=== PATIENT | female | born 1945 | race African-American/Black ===

== ENCOUNTER 2019-10-27 16:48 | Inpatient (IN) | payer OTHER ==
[~2019-10-27] VITALS: Ht 167.6 cm; Wt 83.3 kg
[~2019-10-27 16:48] MED LIST: ACTOS15 MG PO; ALEVE220 MG PO; AMITRIPTYLINE H10 M1 PO; AMLODIPINE BESYL5 MG PO; ANTACID300 M1 PO; ASPIRIN EC81 M1 PO; BENADRYL25 MG PO; BIOTIN5000 MCG PO; CENTRUM SILVER1 EAC4 PO; D3 DOTS2000 UNIT PO; DIABETA 5MG TABL5 MG PO; EDARBI40 MG PO; FLEXERIL PO; FOLBIC RF TABL1 EACH PO; IRON325 PO; JANUMET 50-1,01 EACH PO; JANUVIA100 MG PO; LASIX 40 MG TAB40 M2 PO; LISINOPRIL40 MG PO; MEDROLDOSEPACK PO; METFORMIN 500500 MG PO; MUCINEX TA600 MG/TAB PO; NEURONTIN300 MG PO; NEXIUM40 MG PO; OMEPRAZOLE20 MG PO; PROTONIX40 M1 PO; SIMVASTATIN20 MG PO; TUSSIONEX PENN473 ML PO; VICODIN 5-5001 EACH PO; ZPAK PO
[2019-10-27 16:49] VITALS: BP 126/72
[2019-10-27 17:20] LABS: ABSOLUTE NEUTROPHILS 2.2 thou/uL (1.4-8.2); BASOPHILS 0.3 % (0.0-2.0); EOSINOPHILS 1.9 % (0.0-3.0); HEMATOCRIT 34.9 % (37.0-47.0); HEMOGLOBIN 11.1 gm/dL (12.0-15.0); LYMPHOCYTES 44.5 % (24.0-44.0); MCH 26.4 pg (26.0-34.0); MCHC 31.7 g/dL (28.0-37.0); MCV 83.3 fL (80.0-100.0); MONOCYTES 10.4 % (1.0-8.0); PLATELET COUNT 183 thou/uL (150-400); POLYS 42.9 % (36.0-66.0); RBC 4.19 mil/uL (4.20-5.00); RDW 15.9 % (10.5-14.5)
[2019-10-27 17:26] LABS: ANION GAP 15 mmol/L (7-16); BUN 49 mg/dL (7-18); CALCIUM 8.8 mg/dL (8.5-10.1); CHLORIDE 105 mmol/L (98-107); CO2 21 mmol/L (21-32); CREATININE 3.3 mg/dL (0.6-1.0); GLUCOSE 136 mg/dL (74-106); POTASSIUM 3.4 mmol/L (3.5-5.1); SODIUM 141 mmol/L (136-145)
[2019-10-27 17:36] LABS: ALBUMIN 3.8 g/dL (3.4-5.0); DIRECT BILIRUBIN < 0.1 mg/dL (<0.1-0.2); MAGNESIUM 1.6 mg/dL (1.8-2.4); SGOT 18 U/L (15-37); SGPT 29 U/L (30-65); TOTAL BILIRUBIN 0.5 mg/dL (<0.1-1.0); TOTAL PROTEIN 7.6 g/dL (6.4-8.2); TROPONIN-I <0.06 ng/mL (<0.06)
[2019-10-27 19:21] VITALS: BP 122/78
[2019-10-27 19:39] VITALS: BP 141/79
[2019-10-27 20:00] VITALS: BP 141/79
--- NOTE | 2019-10-27 23:05 | NUR ---
ADMISSION NOTE: ALERT AND ORIENT X4. SHE IS FEELING BETTER AFTER EATING A LITTLE FOOD. SHE HAS BEEN UP TO THE RESTROOM, NO DIZZINESS, STEADY GAIT. ALTHOUGH SHE COMPLAINS THAT HER LEFT FOOT IS BOTHERING HER. SHE STATED THAT SHE HAD NOT EATEN ANY FOOD WENT TO [place], CAME HOME AND WAS TRYING TO GET SOME FOOD PREPARED. WENT TO RESTROOM AND THEN FELL IN RESTROOM. SHE IS NOT SURE IF SHE LOST CONSCIOUSNESS. IV FLUIDS STARTED, SHE ATE A LUNCH BOX AND IS RESTING WELL
[2019-10-27 23:44] VITALS: BP 124/66
[2019-10-28 04:29] VITALS: BP 131/78
[2019-10-28 07:00] LABS: CALCIUM 8.2 mg/dL (8.5-10.1); POTASSIUM 4.1 mmol/L (3.5-5.1)
[2019-10-28 07:02] LABS: CREATININE 2.1 mg/dL (0.6-1.0)
[2019-10-28 07:35] VITALS: BP 119/69
--- NOTE | 2019-10-28 15:42 | NUR ---
INITIAL ASSESSMENT: Consult received. SW reviewed chart and spoke with nursing and attending physician. Pt was admitted from home after syncopal episode. Neuro consulted to evaluate pt for weakness. SW met with pt and family at bedside. Introduced role of SW. Pt is alert/orientated x 4. Pt report she lives at home with her dtr. Prior to admission, pt was independent with ADLs. No use of DME. No hx of services or post-acute placement. Pt's PCP is Dr. Ara Murillo. Plan is for pt to return home when medically stable. Pt's family will be able to provide transportation. SW is following to assist as needed [facility] discharge planning.
[2019-10-28 16:14] VITALS: BP 140/68
[2019-10-28 19:35] VITALS: BP 124/64
--- NOTE | 2019-10-28 20:06 | NUR ---
PATIENT IS PLEASANT WITH CARES. SHE IS ALERT ORIENTED X4. AMBULATES WITH STEADY GAIT AND FRO BATHROOM. RESPIRAIONS ARE NON LABORED. NO EPISODE OF SYNCOPE NOTED TODAY. SHE STATES SHE DOES HAVE IBS AND HAS PERSISTENT DIARRHEA. DENIES ANY PAIN. WILL CONT WITH PLAN OF CARES.
[2019-10-29 04:30] VITALS: BP 137/73
[2019-10-29 04:33] VITALS: BP 138/82
[2019-10-29 04:36] VITALS: BP 136/80
[2019-10-29 05:47] LABS: HEMATOCRIT 30.8 % (37.0-47.0); HEMOGLOBIN 9.7 gm/dL (12.0-15.0); MCH 26.4 pg (26.0-34.0); MCHC 31.5 g/dL (28.0-37.0); MCV 83.9 fL (80.0-100.0); RBC 3.67 mil/uL (4.20-5.00); WBC 4.1 thou/uL (4.0-11.0)
[2019-10-29 06:52] LABS: CALCIUM 8.3 mg/dL (8.5-10.1); CREATININE 1.4 mg/dL (0.6-1.0); POTASSIUM 4.4 mmol/L (3.5-5.1)
[2019-10-29 07:34] VITALS: BP 138/80
--- NOTE | 2019-10-29 09:36 | 2DMMODE ---
[facility] [place] [address] 2 D/M-MODE ECHOCARDIOGRAM Name: DEMARIO LATHAM Room #: 359-P ADM IN M.R.#: [id number] Admission: 10/27/19 Attend Phys: Sandor Palacios MD Discharge: Date of : 49 Report #: [id number] THIS REPORT FOR: cc: Ara Murillo MD, Cynthia MD Lundgren,Luis Roy MD [facility]GED WITH [facility] ~ THIS REPORT FOR: //name// APPROVED REPORT Study performed: 10/29/2019 08:21:03 EXAM: Comprehensive 2D, Doppler, and color-flow Echocardiogram Patient Location: Bedside Room #: 359 Status: routine BSA: 1.93 HR: 67 bpm BP: 138/80 mmHg Rhythm: NSR Other Information Study Quality: Adequate/patient flat Indications Syncope. 2D Dimensions RVDd: 31.29 mm IVSd: 14.83 (7-11mm) LVOT Diam: 21.07 (18-24mm) LVDd: 38.52 mm PWd: 11.47 (7-11mm) Ascending Ao: 30.17 (22-36mm) LVDs: 27.32 (25-40mm) Aortic Root: 27.95 mm Volumes Left Atrial Volume (Systole) Single Plane 4CH: 49.57 mL Single Plane 2CH: 52.02 mL LA ESV Index: 28.00 mL/m2 Aortic Valve AoV Peak Eliazar.: 1.53 m/s AO Peak Gr.: 9.34 mmHg LVOT Max P.29 mmHg LVOT Max V: 1.04 m/s [facility] [address] [place] [address] 2 D/M-MODE ECHOCARDIOGRAM Name: DEMARIO LATHAM Room #: 359-P [facility] IN [facility]#: [id number] Admission: 10/27/19 Attend Phys: Sandor Palacios MD Discharge: Date of : 49 Report #: [id number] KARISSA Vmax: 2.36 cm2 Mitral Valve E/A Ratio: 1.5 MV Decel. Time: 167.81 ms MV E Max Eliazar.: 1.20 m/s MV A Eliazar.: 0.79 m/s MV PHT: 48.66 ms IVRT: 83.04 ms Pulmonary Valve PV Peak Eliazar.: 0.82 m/s PV Peak Gr.: 2.70 mmHg Pulmonary Vein P Vein S: 0.64 m/s P Vein A: 0.28 m/s P Vein D: 0.58 m/s P Vein A Dur.: 114.2 msec P Vein S/D Ratio: 1.10 Tricuspid Valve TR Peak Eliazar.: 2.10 m/s RAP Estimate: 5.00 mmHg TR Peak Gr.: 18.00 mmHg PA Pressure: 23.00 mmHg Left Ventricle The left ventricle is normal size. There is normal LV segmental wall motion. Moderate basal septal hypertrophy is present. Left ventricular systolic function is normal. LVEF is 60-65%. Moderate diastolic dysfunction is present (pseudonormal filling). Right Ventricle The right ventricle is normal size. The right ventricular systolic function is normal. Atria The left atrium size is normal. The right atrium size is normal. Aortic Valve Aortic valve is mildly calcified. No aortic regurgitation is present. There is no aortic valvular stenosis. Mitral Valve The mitral valve is normal in structure. Trace mitral regurgitation. Tricuspid Valve [facility] [address] [place] [address] 2 D/M-MODE ECHOCARDIOGRAM Name: DEMARIO LATHAM Room #: 359-P [facility] IN .R.#: [id number] Admission: 10/27/19 Attend Phys: Sandor Palacios MD Discharge: Date of : 49 Report #: [id number] The tricuspid valve is normal in structure. Trace tricuspid regurgitation. Estimated PAP is 20-25mmHg. Pulmonic Valve Pulmonic valve is not well visualized. Trace pulmonic regurgitation. Great Vessels The aortic root is normal in size. The ascending aorta is normal in size. IVC is normal in size and collapses >50% with inspiration. Pericardium There is no pericardial effusion. <Conclusion> Left ventricular systolic function is normal. There is normal LV segmental wall motion. LVEF is 60-65%. Moderate diastolic dysfunction Aortic valve is mildly calcified. No aortic regurgitation or stenosis The mitral valve is normal in structure. Trace mitral regurgitation. Trace tricuspid regurgitation. Estimated pulmonary artery pressure of 20-25mmHg. There is no pericardial effusion. <ELECTRONICALLY SIGNED> By: Luis Tavares MD, FACC 10/29/19934 4 4 Luis Tavares MD, FACC /INF
[2019-10-29 10:51] LABS: TSH 0.434 uIU/mL (0.358-3.740)
[2019-10-29] MEDS ORDERED: ACETAMINOPHEN325 M1 PO (12:16)
[2019-10-29 14:03] VITALS: BP 138/80
--- NOTE | 2019-10-29 15:09 | NUR ---
ASSUMED CARE OF PT AT 0700. PT AOX4 IN NO ACUTE DISTRESS. VITALS STABLE. VOICING NO CONCERNS. LABS NORMAL. NO SEIZURE ACTIVITY. DISCHARGE ORDERS IN. INSTRUCTED TO FOLLOW UP W/ PCP AND ENDOCRONOLOGY ABOUT INCIDENTAL FINDING ON CAROTID US.
--- NOTE | 2019-10-29 16:16 | NUR ---
DISCHARGE NOTE: SW reviewed chart and spoke with nursing and attending physician. Pt is medically stable for discharge home today. No discharge needs identified at this time. Pt's family to provide transportation home. SW is available to assist should needs arise.
--- NOTE | 2019-11-06 12:31 | EKG ---
[facility] [place] [address] ELECTROCARDIOGRAM REPORT Name: DEMARIO LATHAM Room #: 359-[facility] IN M.R.#: [id number] Admission: 10/27/19 Attend Phys: Sandor Palacios MD Discharge: 10/29/19 Date of : 49 Report #: [id number] THIS REPORT FOR: cc: Ara Murillo MD, Cynthia MD Lundgren,Luis Roy MD [facility] ~ THIS REPORT FOR: //name// [facility] ED Test Date: 2019-10-27 Test Time: 16:56:19 Pat Name: DEMARIO LATHAM Department: Room: [facility] Gender: F Special Education Instructor: BERENICE : 1945 Requested By: Viktoriya Chatman Order Number: [id number] MD: Luis Tavares Measurements Intervals [place] Rate: 80 P: 53 WI: 187 QRS: 0 QRSD: 93 T: 20 QT: 398 QTc: 460 Interpretive Statements Sinus rhythm Left ventricular hypertrophy Poor R wave progression Compared to ECG 11/18/2016 19:00:37 No significant change was found Electronically Signed On 10-28-2019 17:21:46 HEATER ROOM HELPER by Luis Tavares [email or web address] <ELECTRONICALLY SIGNED> By: Luis Tavares MD, [facility] 10/28/19 1721 1656 1656 Luis Tavares MD, [facility] /EPI
== END 2019-10-29 15:13 | disposition home or self-care (01) | DRG 73 ==
LOC: ER 16:48 → 3W 17:58 → ENTRNSPT 10-29 14:58 → EDTRNSPTSTS 10-29 15:02 → 3W 10-29 15:13
PROVIDERS: Emergency Medicine; Internal Medicine; Nurse Practitioner Family; ADMIT Hospitalist
DX: G90.8 Other disorders of autonomic nervous system (principal); N17.0 Acute kidney failure with tubular necrosis; R39.198 Other difficulties with micturition; K58.9 Irritable bowel syndrome, unspecified; E78.5 Hyperlipidemia, unspecified; K21.9 Gastro-esophageal reflux disease without esophagitis; H54.7 Unspecified visual loss; E83.42 Hypomagnesemia; G47.00 Insomnia, unspecified; E66.01 Morbid (severe) obesity due to excess calories; R19.7 Diarrhea, unspecified; E11.22 Type 2 diabetes mellitus with diabetic chronic kidney disease; I12.9 Hypertensive chronic kidney disease with stage 1 through stage 4 chronic kidney disease, or unspecified chronic kidney disease; N18.9 Chronic kidney disease, unspecified; Z91.81 History of falling; Z90.49 Acquired absence of other specified parts of digestive tract; Z98.84 Bariatric surgery status; Z98.42 Cataract extraction status, left eye; Z98.41 Cataract extraction status, right eye; Z79.891 Long term (current) use of opiate analgesic; Z79.899 Other long term (current) drug therapy; Z88.8 Allergy status to other drugs, medicaments and biological substances; Z68.29 Body mass index [BMI] 29.0-29.9, adult
CPT/HCPCS: 10879

== ENCOUNTER 2019-11-23 23:49 | Observation (INO) | payer OTHER ==
[~2019-11-23] VITALS: Ht 167.6 cm; Wt 84.8 kg
[~2019-11-23 23:49] MED LIST changes: +ACETAMINOPHEN325 M1 PO
[2019-11-23 23:51] VITALS: BP 119/72
[2019-11-24] VITALS (7 sets, daily range): BP systolic 120–167; BP diastolic 65–99
[2019-11-24] MEDS ORDERED: FUROSEMIDE 40 M40 MG PO (00:49)
[2019-11-24] MEDS ORDERED: NORCO 10-325 T1 EACH PO (00:50)
[2019-11-24 01:58] LABS: HEMATOCRIT 31.9 % (37.0-47.0); HEMOGLOBIN 9.9 gm/dL (12.0-15.0); MCH 26.1 pg (26.0-34.0); MCHC 30.9 g/dL (28.0-37.0); MCV 84.2 fL (80.0-100.0); PLATELET COUNT 225 thou/uL (150-400); RBC 3.79 mil/uL (4.20-5.00); RDW 15.4 % (10.5-14.5)
[2019-11-24 02:02] LABS: CREATININE 1.7 mg/dL (0.6-1.0); POTASSIUM 4.5 mmol/L (3.5-5.1)
[2019-11-24 02:48] LABS: ABSOLUTE NEUTROPHILS 2.9 thou/uL (1.4-8.2)
[2019-11-24 02:49] LABS: LARGE PLATELETS RARE
--- NOTE | 2019-11-24 10:11 | EKG ---
[facility] [place] [address] ELECTROCARDIOGRAM REPORT Name: DEMARIO LATHAM Room #: 442- ADM IN M.R.#: [id number] Admission: 11/24/19 Attend Phys: Ray Gandara MD Discharge: Date of : 49 Report #: [id number] THIS REPORT FOR: cc: Ara Murillo MD, Cynthia MD [place],Grupo Martinez MD ~ THIS REPORT FOR: //name// [facility] ED Test Date: 2019-11-24 Test Time: 03:28:50 Pat Name: DEMARIO LATHAM Department: Room: [facility] Gender: F Drilling Contractor: LANDON : 1945 Requested By: Josephine Gage Order Number: [id number] MD: Grupo Milner Measurements Intervals [place] Rate: 103 P: 65 MT: 182 QRS: -6 QRSD: 84 T: 34 QT: 342 QTc: 448 Interpretive Statements Sinus tachycardia Poor R-wave progression Nonspecific ST segment abnormalities Compared to ECG 10/27/2019 16:56:19 Sinus rhythm no longer present Left ventricular hypertrophy no longer present Electronically Signed On 11-24-2019 10:10:12 FAMILY CONSULTANT by Grupo Milner [email or web address] <ELECTRONICALLY SIGNED> By: Grupo Milner MD 11/24/19 1010 0328 0328 Grupo Milner MD /EPI
--- NOTE | 2019-11-25 03:15 | NUR ---
PT IS ALERT AND ORIENTED. USES SBA TO THE BATHROOM. SHE HAS A CONGESTED COUGH. TAKES MEDS OKAY. AFEBRILE. ELEVATED BP, HOME BP MED RESUMED.
[2019-11-25 03:30] VITALS: BP 140/76
[2019-11-25 07:03] LABS: CALCIUM 8.9 mg/dL (8.5-10.1); CREATININE 1.4 mg/dL (0.6-1.0); POTASSIUM 4.8 mmol/L (3.5-5.1)
[2019-11-25 08:13] VITALS: BP 148/88
[2019-11-25] MEDS ORDERED: LEVAQUIN 500 M500 M2 PO (10:32)
[2019-11-25] MEDS ORDERED: MUCINEX600 MG PO (10:32)
[2019-11-25] MEDS ORDERED: PREDNISONE 10 M10 M1 PO (10:33)
[2019-11-25] MEDS ORDERED: VENTOLIN HFA INH8 GM INH (10:34)
[2019-11-25 10:41] VITALS: BP 148/88
--- NOTE | 2019-11-25 10:51 | NUR ---
ASSESSMENT-PT LIVES AT HOME WITH HER DTR. PT WALKS ON HER OWN AND DOES HER OWN ADLS. PT'S SPOUSE AWAY LAST FALL. PT HAS 2 DTRS THAT LIVE CLOSE TO HER. PT HAS NOT HAD ANY HH SERVICES IN THE PAST. THEY SHARE THE HOUSEHOLD THINGS. PT HAS ANOTHER DTR IN THE AREA. PT DENIES ANY DC NEEDS AT THIS TIME. FOLLOWING TO ASSIST WITH DC PLANNING.
--- NOTE | 2019-11-25 11:38 | NUR ---
PT IN BED WATCHING TV TOOK AM MEDS AND PRN COUGH MED. BLOOD SUGARS MONITORED. S/S ORDERED. DR MEZA DISCHARGING PATIENT TODAY IV ACSESS DCD.
[2019-11-25 15:19] VITALS: BP 148/88
[2019-11-25 15:31] VITALS: BP 148/88
== END 2019-11-25 15:34 | disposition home or self-care (01) ==
LOC: ER 23:49 → EROBS 11-24 04:08 → 4S 11-24 04:08
PROVIDERS: Emergency Medicine Emergency Medical Services; Nurse Practitioner Family; ADMIT Hospitalist
DX: R50.9 Fever, unspecified (principal); R07.89 Other chest pain; N18.9 Chronic kidney disease, unspecified; E11.22 Type 2 diabetes mellitus with diabetic chronic kidney disease; R55 Syncope and collapse; N17.9 Acute kidney failure, unspecified; R00.0 Tachycardia, unspecified; E83.42 Hypomagnesemia; S90.121A Contusion of right lesser toe(s) without damage to nail, initial encounter; W19.XXXA Unspecified fall, initial encounter; Y93.89 Activity, other specified; Y92.89 Other specified places as the place of occurrence of the external cause; Y99.8 Other external cause status
CPT/HCPCS: 10195

== ENCOUNTER 2019-12-10 12:38 | Emergency (ER) | payer OTHER ==
[~2019-12-10] VITALS: Ht 167.6 cm; Wt 83.9 kg
[~2019-12-10 12:38] MED LIST changes: +FUROSEMIDE 40 M40 MG PO; +LEVAQUIN 500 M500 M2 PO; +MUCINEX600 MG PO; +NORCO 10-325 T1 EACH PO; +PREDNISONE 10 M10 M1 PO; +VENTOLIN HFA INH8 GM INH
[2019-12-10 13:26] LABS: ABSOLUTE NEUTROPHILS 2.1 thou/uL (1.4-8.2); BASOPHILS 0.3 % (0.0-2.0); EOSINOPHILS 3.2 % (0.0-3.0); HEMATOCRIT 35.4 % (37.0-47.0); HEMOGLOBIN 11.2 gm/dL (12.0-15.0); LYMPHOCYTES 37.5 % (24.0-44.0); MCH 26.5 pg (26.0-34.0); MCHC 31.6 g/dL (28.0-37.0); MCV 83.7 fL (80.0-100.0); MONOCYTES 10.1 % (1.0-8.0); PLATELET COUNT 212 thou/uL (150-400); POLYS 48.9 % (36.0-66.0); RBC 4.23 mil/uL (4.20-5.00); RDW 15.6 % (10.5-14.5); WBC 4.3 thou/uL (4.0-11.0)
[2019-12-10 13:29] LABS: ANION GAP 8 mmol/L (7-16); BUN 14 mg/dL (7-18); CALCIUM 9.1 mg/dL (8.5-10.1); CHLORIDE 108 mmol/L (98-107); CO2 26 mmol/L (21-32); CREATININE 1.1 mg/dL (0.6-1.0); GLUCOSE 131 mg/dL (74-106); POTASSIUM 3.6 mmol/L (3.5-5.1); SODIUM 142 mmol/L (136-145)
[2019-12-10 13:39] LABS: ALBUMIN 3.4 g/dL (3.4-5.0); SGOT 15 U/L (15-37); SGPT 20 U/L (30-65); TOTAL BILIRUBIN 0.4 mg/dL (<0.1-1.0); TROPONIN-I <0.06 ng/mL (<0.06)
[2019-12-10] MEDS ORDERED: EDARBI40 MG PO (13:44)
--- NOTE | 2019-12-10 14:31 | EKG ---
[facility] [place] [address] ELECTROCARDIOGRAM REPORT Name: DEMARIO LATHAM Room #: [facility]#: [id number] Admission: 12/10/19 Attend Phys: Discharge: Date of : 49 Report #: [id number] THIS REPORT FOR: cc: Ara Murillo MD, Cynthia MD Lundgren,Luis Roy MD [facility] ~ THIS REPORT FOR: //name// [facility] ED Test Date: 2019-12-10 Test Time: 12:38:40 Pat Name: DEMARIO LATHAM Department: Room: Gender: Card Grinder Helper: [facility] : 1945 Requested By: Sven Miller Order Number: [id number] MD: Luis Tavares Measurements Intervals [place] Rate: 82 P: 41 WY: 173 QRS: -5 QRSD: 98 T: 14 QT: 375 QTc: 438 Interpretive Statements Sinus rhythm Poor R wave progression Baseline wander in lead(s) V1 Compared to ECG 11/24/2019 03:28:50 Sinus tachycardia no longer present Electronically Signed On 12-10-2019 14:30:35 CDT by Luis Tavares [email or web address] <ELECTRONICALLY SIGNED> By: Luis Tavares MD, FACC 12/10/19 1430 1238 1238 Luis Tavares MD, [facility] /EPI
[2019-12-10 16:14] VITALS: BP 156/90
--- NOTE | 2019-12-12 07:33 | EKG ---
[facility] [place] [address] ELECTROCARDIOGRAM REPORT Name: DEMARIO LATHAM [facility] [id number] Admission: 12/10/19 Attend Phys: Discharge: 12/10/19 Date of : 49 Report #: [id number] THIS REPORT FOR: cc: Ara uMrillo MD, Cynthia MD Lundgren,Luis Roy MD [facility] ~ THIS REPORT FOR: //name// [facility] ED Test Date: 2019-12-10 Test Time: 12:57:26 Pat Name: DEMARIO LATHAM Department: Room: Gender: F Patch Driller: : 1945 Requested By: Sven Miller Order Number: [id number] MD: Luis Tavares Measurements Intervals [place] Rate: 89 P: 62 OK: 140 QRS: -6 QRSD: 90 T: 36 QT: 376 QTc: 458 Interpretive Statements Sinus rhythm Normal tracing Compared to ECG 12/10/2019 12:38:40 Poor R-wave progression no longer present Electronically Signed On 12-12-2019 7:31:51 CDT by Luis Tavares [email or web address] <ELECTRONICALLY SIGNED> By: Luis Tavares MD, FAC 12/12/19 0731 1257 1257 Luis Tavares MD, [facility] /EPI
== END 2019-12-10 16:14 | disposition home or self-care (01) ==
LOC: ER 12:38
PROVIDERS: Emergency Medicine
DX: R10.13 Epigastric pain (principal); R07.9 Chest pain, unspecified; R05 Cough; R09.81 Nasal congestion; I10 Essential (primary) hypertension; E11.9 Type 2 diabetes mellitus without complications; E78.5 Hyperlipidemia, unspecified; Z79.899 Other long term (current) drug therapy

== ENCOUNTER 2020-05-13 14:40 | Observation (INO) | payer OTHER ==
[~2020-05-13] VITALS: Ht 167.6 cm; Wt 87.1 kg
[2020-05-13 14:45] VITALS: BP 141/78
[2020-05-13 15:36] LABS: URINE BILIRUBIN NEGATIVE (Negative); URINE BLOOD NEGATIVE (Negative); URINE CLARITY CLEAR; URINE COLOR YELLOW; URINE GLUCOSE-RANDOM* NEGATIVE (Negative); URINE KETONES NEGATIVE (Negative); URINE LEUKOCYTES-REFLEX TRACE (Negative); URINE NITRITE-REFLEX NEGATIVE (Negative); URINE PROTEIN (DIPSTICK) NEGATIVE (Negative); URINE SPECIFIC GRAVITY 1.015 (1.005-1.035); URINE UROBILINOGEN 0.2 E.U./dl (0.2-1.0)
[2020-05-13 15:51] LABS: HEMATOCRIT 32.8 % (37.0-47.0); MCH 27.8 pg (26.0-34.0); MCHC 33.5 g/dL (28.0-37.0); PLATELET COUNT 171 thou/uL (150-400); RBC 3.96 mil/uL (4.20-5.00); RDW 15.4 % (10.5-14.5); WBC 3.5 thou/uL (4.0-11.0)
[2020-05-13 16:01] LABS: CALCIUM 8.2 mg/dL (8.5-10.1); CREATININE 2.1 mg/dL (0.6-1.0); POTASSIUM 3.8 mmol/L (3.5-5.1)
[2020-05-13 16:07] LABS: ALBUMIN 3.8 g/dL (3.4-5.0); TOTAL BILIRUBIN 0.5 mg/dL (0.2-1.0); TOTAL PROTEIN 6.5 g/dL (6.4-8.2)
[2020-05-13 16:45] LABS: ABSOLUTE NEUTROPHILS 1.5 thou/uL (1.4-8.2); ANISOCYTOSIS 1+; ATYPICAL LYMPHS 1 %
[2020-05-13 16:46] LABS: POLYCHROMASIA OCCASIONAL
[2020-05-13] MEDS ORDERED: HYDROCODON-ACE1 EAC5 PO (18:19)
[2020-05-13] MEDS ORDERED: IRON325 M1 PO (18:21)
[2020-05-13] MEDS ORDERED: MULTIVITAMINS1 EAC6 PO (18:21)
[2020-05-13] MEDS ORDERED: K2 PLUS D3 TAB1 EACH PO (18:22)
[2020-05-13] MEDS ORDERED: VITAMIN B-1100 M2 PO (18:22)
[2020-05-13] MEDS ORDERED: VITAMIN B-121000 MCG PO (18:23)
[2020-05-13 18:49] VITALS: BP 132/75
--- NOTE | 2020-05-13 19:37 | NUR ---
1924 ATTEMPTED TO CALL REPORT. NURSE WITH PT AND WILL CALL BACK
[2020-05-13 20:05] VITALS: BP 140/87
[2020-05-13 20:22] VITALS: BP 131/75
--- NOTE | 2020-05-13 22:38 | NUR ---
PT ADMITTED TO UNIT AT 2009. PT IS A/O X4 AND UP AD SHAWNA. PT DENIES ANY PAIN OR DISCOMFORT AT THIS TIME. ADMISSION COMPLETE AND DOCUMENTED. VSS. BLOOD SUGAR STABLE. CALL LIGHT IS WITHIN REACH. PT IS ABLE TO MAKE NEEDS KNOWN. WILL CONTINUE TO MONITOR.
[2020-05-14 05:30] LABS: HEMATOCRIT 33.5 % (37.0-47.0); HEMOGLOBIN 10.7 gm/dL (12.0-15.0); MCH 27.2 pg (26.0-34.0); MCHC 32.1 g/dL (28.0-37.0); MCV 84.9 fL (80.0-100.0); PLATELET COUNT 173 thou/uL (150-400); RBC 3.94 mil/uL (4.20-5.00); WBC 3.2 thou/uL (4.0-11.0)
[2020-05-14 05:39] LABS: CALCIUM 8.2 mg/dL (8.5-10.1); CREATININE 1.7 mg/dL (0.6-1.0); MAGNESIUM 1.9 mg/dL (1.8-2.4); POTASSIUM 3.9 mmol/L (3.5-5.1)
[2020-05-14 07:00] VITALS: BP 127/75
[2020-05-14 08:22] LABS: % SATURATION 20 % (20-39); IRON 59 ug/dL (50-170); TIBC 301 ug/dL (250-450)
[2020-05-14 08:48] LABS: FERRITIN 87 ng/mL (8-252)
--- NOTE | 2020-05-14 09:24 | NUR ---
Assumed patient care at 0715. Vital signs stable, LSCTA, ABD soft and non-tender, BS x's 4, skin is clean, warm, dry and intact. Patient voices no complaints, wants to return home. Dr Palacios plans to Discharge patient today.
[2020-05-14 11:47] LABS: ABSOLUTE NEUTROPHILS 1.1 thou/uL (1.4-8.2)
[2020-05-14 11:48] LABS: ANISOCYTOSIS SLIGHT; POIKILOCYTOSIS SLIGHT
[2020-05-14 12:19] VITALS: BP 127/75
== END 2020-05-14 14:08 | disposition home or self-care (01) ==
LOC: ER 14:40 → 4W 18:59 → EROBS 18:59 → 4W 18:59
PROVIDERS: Nurse Practitioner; Student in an Organized Health Care Education/Training Program; ADMIT Hospitalist; ATTEND Hospitalist
DX: N17.9 Acute kidney failure, unspecified (principal); E11.22 Type 2 diabetes mellitus with diabetic chronic kidney disease; I12.9 Hypertensive chronic kidney disease with stage 1 through stage 4 chronic kidney disease, or unspecified chronic kidney disease; N18.9 Chronic kidney disease, unspecified; M62.82 Rhabdomyolysis; E78.5 Hyperlipidemia, unspecified; G62.9 Polyneuropathy, unspecified; K21.9 Gastro-esophageal reflux disease without esophagitis; Z79.899 Other long term (current) drug therapy
CPT/HCPCS: 10040

== ENCOUNTER 2021-08-27 19:14 | Inpatient (IN) | payer OTHER ==
[~2021-08-27] VITALS: Ht 167.6 cm; Wt 77.1 kg
[~2021-08-27 19:14] MED LIST changes: +HYDROCODON-ACE1 EAC5 PO; +IRON325 M1 PO; +K2 PLUS D3 TAB1 EACH PO; +MULTIVITAMINS1 EAC6 PO; +VITAMIN B-1100 M2 PO; +VITAMIN B-121000 MCG PO
[2021-08-27 19:55] VITALS: BP 166/86
[2021-08-27] MEDS ORDERED: VALSARTAN160 MG PO (20:01)
[2021-08-27] MEDS ORDERED: NORCO 10-325 T1 EACH PO (20:02)
[2021-08-27 21:55] LABS: CALCIUM 8.5 mg/dL (8.5-10.1); POTASSIUM 3.5 mmol/L (3.5-5.1)
[2021-08-27 21:59] LABS: ALBUMIN 3.1 g/dL (3.4-5.0); TOTAL BILIRUBIN 1.2 mg/dL (0.2-1.0); TOTAL PROTEIN 7.5 g/dL (6.4-8.2)
[2021-08-27 22:06] LABS: ABSOLUTE NEUTROPHILS 10.4 thou/uL (1.4-8.2); BASOPHILS 0.9 % (0.0-2.0); EOSINOPHILS 0.1 % (0.0-3.0); HEMATOCRIT 36.8 % (37.0-47.0); HEMOGLOBIN 11.6 gm/dL (12.0-15.0); LYMPHOCYTES 10.4 % (24.0-44.0); MCH 25.9 pg (26.0-34.0); MCHC 31.6 g/dL (28.0-37.0); MCV 81.8 fL (80.0-100.0); MONOCYTES 15.1 % (1.0-8.0); PLATELET COUNT 181 thou/uL (150-400); POLYS 73.5 % (36.0-66.0); RDW 15.5 % (10.5-14.5); WBC 14.2 thou/uL (4.0-11.0)
[2021-08-27 23:48] LABS: URINE BILIRUBIN NEGATIVE (Negative); URINE BLOOD 1+ (Negative); URINE CLARITY CLEAR; URINE COLOR YELLOW; URINE GLUCOSE-RANDOM* NEGATIVE (Negative); URINE KETONES TRACE (Negative); URINE LEUKOCYTES-REFLEX NEGATIVE (Negative); URINE NITRITE-REFLEX NEGATIVE (Negative); URINE PROTEIN (DIPSTICK) TRACE (Negative); URINE SPECIFIC GRAVITY <= 1.005 (1.005-1.035); URINE UROBILINOGEN 0.2 E.U./dl (0.2-1.0)
[2021-08-28 00:16] LABS: MUCUS 0-3 Light strn/LPF (None Seen); SQUAMOUS None Seen /LPF (0-3)
[2021-08-28 00:17] LABS: BACTERIA-REFLEX 1-9 Few /HPF (None Seen); CASTS None Seen /LPF (None Seen); CRYSTALS None Seen /LPF (None Seen); URINE RBC 1-2 Rare /HPF (NONE SEEN); URINE WBC-REFLEX None Seen /HPF (0-5)
[2021-08-28 05:14] LABS: HEMATOCRIT 33.3 % (37.0-47.0); HEMOGLOBIN 10.5 gm/dL (12.0-15.0); MCH 25.9 pg (26.0-34.0); MCHC 31.5 g/dL (28.0-37.0); MCV 82.3 fL (80.0-100.0); RBC 4.04 mil/uL (4.20-5.00); WBC 12.9 thou/uL (4.0-11.0)
[2021-08-28 05:36] LABS: POTASSIUM 3.4 mmol/L (3.5-5.1)
[2021-08-28 13:45] VITALS: BP 127/52
[2021-08-28 14:54] VITALS: BP 172/88
--- NOTE | 2021-08-28 18:17 | NUR ---
Pt is new admit from ED. Pt is A &O x4. Pt received medications as ordered. Pt VS stable. Pt is sinus tach on the tele. Pt is SBA with cares and ADLs. Pt is able to make needs known
[2021-08-28 20:24] VITALS: BP 157/91
[2021-08-28] MEDS ORDERED: LEVO-T50 MCG PO (21:28)
[2021-08-28] MEDS ORDERED: TRADJENTA5 MG (21:33)
[2021-08-29 00:11] VITALS: BP 99/59
--- NOTE | 2021-08-29 03:58 | NUR ---
PT IS A/O X4 AND IS UP WITH SBA TO THE BR. SUPERINTENDENT DRILLING AND PRODUCTION NOTIED TO ACTIVATE HOME MEDICATIONS AND DIET TO ALLOW PT TO EAT AND TAKE MEDICATIONS. PT IS PLEASANT AND COOPERATIVE. C/O GENERALIZED LOWER BACK PAIN. PRN PAIN MEDICATION GIVEN DIRECTED. MAINTANCE FLUID INFUSING AT PRESCRIBED RATE. FALL PRECAUTIONS IN PLACE, CALL LIGHT IS WITHIN REACH. PT CALLS OUT APPROPROPRIATELY.
[2021-08-29 04:38] VITALS: BP 136/79
[2021-08-29 07:34] VITALS: BP 133/76
--- NOTE | 2021-08-29 10:23 | NUR ---
ASSUMED PT CARE THIS AM. PT IS ALERT & ORIENTED X4. PT HAS IV SITE ON RAC RUNNING NS @126ML/HR. PT IS ON ROOM AIR. PT IS ACCUCHECK ACHS. PT IS ON TELE MONITOR. PT IS ON ROOM AIR. GIVEN MEDICATIONS WITHOUT DIFFICULTIES. PT IS ON CONTACT ISOLATION TO R/O C DIFF. PT ON THE BED WATCHING TV, BED ON THE LOWEST POSITION, SIDE RAILS UP, CALL LIGHT WITHIN REACH. WILL CONTINUE TO MONITOR PT. FOLLOW POC.
[2021-08-29 19:21] VITALS: BP 181/101
[2021-08-29 21:25] VITALS: BP 165/89
[2021-08-30 00:33] VITALS: BP 151/91
[2021-08-30 00:45] LABS: ABSOLUTE NEUTROPHILS 4.8 thou/uL (1.4-8.2); BASOPHILS 0.7 % (0.0-2.0); EOSINOPHILS 2.9 % (0.0-3.0); HEMATOCRIT 28.8 % (37.0-47.0); HEMOGLOBIN 9.2 gm/dL (12.0-15.0); LYMPHOCYTES 17.1 % (24.0-44.0); MCH 26.2 pg (26.0-34.0); MCV 81.9 fL (80.0-100.0); MONOCYTES 14.3 % (1.0-8.0); PLATELET COUNT 180 thou/uL (150-400); RBC 3.52 mil/uL (4.20-5.00); RDW 15.5 % (10.5-14.5); WBC 7.4 thou/uL (4.0-11.0)
[2021-08-30 00:49] LABS: CALCIUM 7.8 mg/dL (8.5-10.1); CREATININE 1.8 mg/dL (0.6-1.0)
[2021-08-30 01:06] LABS: POTASSIUM 2.8 mmol/L (3.5-5.1)
[2021-08-30 04:24] VITALS: BP 142/79
--- NOTE | 2021-08-30 04:59 | NUR ---
PT IS PLEASANT AND COOPERATIVE. MAX TEMP 101.1 DURING THE NIGHT. FEVER RESOLVED WITH TYLENOL. PRN HYDRALAZINE GIVEN FOR HTN. BP IMPROVED. PT C/O BACK PAIN. PAIN MEDICATION GIVEN WITH SOME RELIEF. IVF AND ABX ADMINISTERED ORDERED. PRODUCTIVE COUGH NOTED BUT NO SOA. UP TO BSC TO VOID. PROGRESSING SLOWLY TOWARD POC GOALS. WILL MONITOR FURTHER.
[2021-08-30 07:14] VITALS: BP 161/87
[2021-08-30 11:00] VITALS: BP 160/91
--- NOTE | 2021-08-30 11:19 | NUR ---
ASSUMED PT CARE THIS AM. PT IS ALERT & ORIENTED X4. PT HAS IV SITE ON RAC RUNNING NS @126ML/HR. PT IS ON ROOM AIR. PT HAS TELE MONITOR ON. PT HAS DediS[employer]WICK EXTERNAL CATH AND USES BEDSIDE COMMODE. NO C/O OF NAUSEA AND VOMITING THIS AM. PT IS ACCUCHECK ACHS. WILL CONTINUE TO MONITOR PT. FOLLOW POC.
[2021-08-30] MEDS ORDERED: AUGMENTIN 875-1 EACH PO (14:41)
[2021-08-30] MEDS ORDERED: PREDNISONE 10 M10 M1 PO (14:41)
[2021-08-30 15:49] VITALS: BP 160/91
--- NOTE | 2021-08-30 16:09 | NUR ---
PT ADMITTED RELATED TO DIARRHEA, ABD PAIN, LUNG MASS, AND PNEUMONIA. CM MET WITH PT AT BEDSIDE THIS DAY. PT APPEARED TO BE A&O X4. CM ROLE INTRODUCED. PT INDICATED SHE LIVES IN A HOUSE AND THAT HER DTR ENZO AND HER FAMILY LIVE WITH HER. SHE INDICATED THAT THERE ARE 4 STEP TO ENTER, 4 STEPS TO MAIN LEVEL, AND 6 TO BEDROOM. SHE INDICATED SHE HAD BEEN INDEPDENENT WITH GAIT AND ADLS TROUSSEAU CONSULTANT. PT INDICATED NO DME TROUSSEAU CONSULTANT. PT INDICATED HE PCP IS DR. MIR LYMAN. CARE TEAM INDICATED THAT PT IS MEDICALLY STABLE TO DC HOME THIS DAY. PT'S FAMILY TO PROVIDE TRANSPORT. PT TO DC HOME TO SELF CARE THIS DAY. NO OTHER CM INTERVENTION INDICATED. CASE CLOSED.
== END 2021-08-30 16:38 | disposition home or self-care (01) | DRG 871 ==
LOC: ER 19:14 → EROBS 08-28 00:10 → 4W 08-28 00:10
PROVIDERS: Emergency Medicine; Hospitalist; Nurse Practitioner; Nurse Practitioner Family; ADMIT Hospitalist; ATTEND Hospitalist
DX: A41.9 Sepsis, unspecified organism (principal); J18.9 Pneumonia, unspecified organism; N17.9 Acute kidney failure, unspecified; R91.8 Other nonspecific abnormal finding of lung field; N18.30 Chronic kidney disease, stage 3 unspecified; E11.42 Type 2 diabetes mellitus with diabetic polyneuropathy; Z20.822 Contact with and (suspected) exposure to COVID-19; E78.5 Hyperlipidemia, unspecified; I12.9 Hypertensive chronic kidney disease with stage 1 through stage 4 chronic kidney disease, or unspecified chronic kidney disease; Z79.899 Other long term (current) drug therapy; Z98.84 Bariatric surgery status; Z90.49 Acquired absence of other specified parts of digestive tract; Z98.49 Cataract extraction status, unspecified eye; Z88.8 Allergy status to other drugs, medicaments and biological substances
CPT/HCPCS: 10045

== ENCOUNTER → 2021-10-04 | Outpatient (CLI) | payer OTHER ==
[~2021-10-04] MED LIST changes: +AUGMENTIN 875-1 EACH PO; +LEVO-T50 MCG PO; +TRADJENTA5 MG; +VALSARTAN160 MG PO
[2021-10-04 13:37] LABS: CREATININE 1.4 mg/dL (0.6-1.0)
== END ==
LOC: CAT 12:12
PROVIDERS: ATTEND Pediatrics
DX: J98.11 Atelectasis (principal); E04.2 Nontoxic multinodular goiter; R91.8 Other nonspecific abnormal finding of lung field; I70.0 Atherosclerosis of aorta; I25.10 Atherosclerotic heart disease of native coronary artery without angina pectoris; E04.9 Nontoxic goiter, unspecified